=== PATIENT | male | born 1950 | race Caucasian/White ===

== ENCOUNTER 2018-11-17 09:05 | Outpatient (REF) | payer MEDICARE, MEDICAID, SELFPAY ==
[2018-11-17 12:25] LABS: Anion Gap 10.4 mmol/L (3-11); BUN 21 mg/dL (7-18); CO2 24.6 mmol/L (21.0-32.0); CREATININE 0.96 mg/dL (0.70-1.30); Calcium 9.3 mg/dL (8.5-10.1); Calculated LDL 125; Chloride 104 mmol/L (98-107); Cholesterol 199 mg/dL (50-200); Glucose 112 mg/dL (70-100); HDL Cholesterol 49 mg/dL (40-60); Potassium 4.4 mmol/L (3.5-5.1); Sodium 139 mmol/L (136-145); Triglyceride 125 mg/dL (30-150)
== END 2018-11-17 09:25 ==
LOC: NCHCN 09:05
PROVIDERS: PCP Nurse Practitioner Family; Visit Provider Nurse Practitioner Family
DX: I10 Essential (primary) hypertension (principal); Z13.220 Encounter for screening for lipoid disorders
CPT/HCPCS: 80048; 80061; 83721

== ENCOUNTER 2018-12-04 02:05 | Outpatient (CLI) | payer MEDICARE, MEDICAID, SELFPAY ==
--- NOTE | 2018-12-11 11:53 | HOLTER_ITS ---
DATE OF DICTATION: December 09, 2018 DATE OF RECORDING: December 04, 2018 DATE OF ANALYSIS: December 06, 2018 REFERRING PROVIDER: Lena Blue N.P. INDICATION: PVC's FINDINGS: 1. Baseline sinus rhythm, 53-125 bpm, average 74 bpm. 2. Rare PVC, total of 18 in 37 hours, no VT. 3. Rare PAC, 0.6%, frequent SVT runs (104 in total, maximally 29 beats, maximally 162 bpm), no AF. 4. No bradycardia or pauses. 5. No symptoms recorded.
== END 2018-12-04 02:25 ==
PROVIDERS: PCP Nurse Practitioner Family; Visit Provider Nurse Practitioner Family
DX: I49.3 Ventricular premature depolarization (principal); I47.1 Supraventricular tachycardia
CPT/HCPCS: 93225

== ENCOUNTER 2018-12-06 17:21 | Outpatient (CLI) | payer MEDICARE, MEDICAID, SELFPAY | END 2018-12-06 17:41 | PROVIDERS: PCP Nurse Practitioner Family; Visit Provider Nurse Practitioner Family | DX: I49.3 Ventricular premature depolarization (principal); I47.1 Supraventricular tachycardia | CPT/HCPCS: 93226 ==

== ENCOUNTER 2018-12-09 19:43 | Outpatient (CLI) | payer MEDICARE, MEDICAID, SELFPAY | END 2018-12-09 20:03 | PROVIDERS: PCP Nurse Practitioner Family; Referring Provider Nurse Practitioner Family; Visit Provider Internal Medicine Cardiovascular Disease | DX: I49.3 Ventricular premature depolarization (principal); I47.1 Supraventricular tachycardia | CPT/HCPCS: 93227 ==